=== PATIENT | female | born 1990 | race Caucasian/White ===

== ENCOUNTER 2017-05-23 21:14 | Emergency (ER) | payer OTHER ==
[2017-05-23 23:42] VITALS: BP 148/93
== END 2017-05-23 23:42 | disposition home or self-care (01) ==
LOC: ED 21:14
DX: M54.5 Low back pain (principal); I10 Essential (primary) hypertension; E11.9 Type 2 diabetes mellitus without complications
CPT/HCPCS: J3010; Q0162

== ENCOUNTER 2017-07-17 00:41 | Emergency (ER) | payer OTHER ==
[2017-07-17 02:50] LABS: ALBUMIN 3.4 g/dL (3.4-5.0); ALKALINE PHOSPHATASE 180 U/L (46-116); ALT/SGPT 52 U/L (14-59); AST/SGOT 24 U/L (15-37); BILIRUBIN TOTAL 0.4 mg/dL (0.20-1.00); CARBON DIOXIDE 28.7 mmol/L (21-32); CHLORIDE SERUM 97 mmol/L (98-107); CREATININE SERUM 0.6 mg/dL (0.6-1.0); GFR1 > 60 mL/min; GLUCOSE SERUM 331 mg/dL (74-106); LIPASE 200 IU/L (73-393); POTASSIUM SERUM 3.3 mmol/L (3.5-5.1); SODIUM SERUM 136 mmol/L (136-145)
[2017-07-17 02:51] LABS: BASOPHIL % 0.3 % (0-2); PLATELET COUNT 234 x10^3mcL (130-400); RED CELL DISTRIBUTION WIDTH 12.7 % (11.5-14.5)
[2017-07-17 03:02] LABS: CALCIUM 8.8 mg/dL (8.5-10.1)
[2017-07-17 04:06] LABS: microscopic required? NO
[2017-07-17 04:30] LABS: urine erythrocyte NEGATIVE (NEGATIVE)
[2017-07-17 06:39] VITALS: BP 151/100
== END 2017-07-17 06:39 | disposition home or self-care (01) ==
LOC: ED 00:41
PROVIDERS: Emergency Medicine
DX: R10.13 Epigastric pain (principal); R19.7 Diarrhea, unspecified; E11.65 Type 2 diabetes mellitus with hyperglycemia; I10 Essential (primary) hypertension; G89.29 Other chronic pain; M54.9 Dorsalgia, unspecified; Z79.84 Long term (current) use of oral hypoglycemic drugs
CPT/HCPCS: J2270; J2405; Q0092

== ENCOUNTER 2017-09-02 20:08 | Emergency (ER) | payer OTHER ==
[~2017-09-02] VITALS: Ht 167.6 cm; Wt 95.7 kg
[2017-09-02 20:16] VITALS: Ht 167.6 cm; Wt 95.7 kg
[2017-09-02 22:15] VITALS: BP 150/89
[2017-09-03] MEDS ORDERED: LISINOPRIL20 MG PO (22:50)
[2017-09-03] MEDS ORDERED: HYDROCHLOROTHIA25 MG PO (22:51)
[2017-09-03] MEDS ORDERED: GLUCOTROL10 MG PO (22:51)
[2017-09-03] MEDS ORDERED: METFORMIN HCL1000 MG PO (22:52)
[2017-09-03] MEDS ORDERED: TRAMADOL HCL50 MG PO (22:52)
== END 2017-09-02 22:15 | disposition home or self-care (01) ==
LOC: ED 20:08
DX: L02.214 Cutaneous abscess of groin (principal); L03.314 Cellulitis of groin; I10 Essential (primary) hypertension; E11.9 Type 2 diabetes mellitus without complications; Z90.49 Acquired absence of other specified parts of digestive tract
CPT/HCPCS: J0696

== ENCOUNTER 2017-09-03 21:05 | Inpatient (IN) | payer OTHER ==
[~2017-09-03] VITALS: Ht 167.6 cm; Wt 96.8 kg
[2017-09-03 21:20] VITALS: Ht 167.6 cm; Wt 96.8 kg
[2017-09-03 22:11] LABS: BASOPHIL % 0.2 % (0-2); PLATELET COUNT 236 x10^3mcL (130-400)
[2017-09-03 22:25] LABS: CALCIUM 8.5 mg/dL (8.5-10.1); CARBON DIOXIDE 28.2 mmol/L (21-32); CHLORIDE SERUM 98 mmol/L (98-107); CREATININE SERUM 0.8 mg/dL (0.6-1.0); GFR1 > 60 mL/min; GLUCOSE SERUM 416 mg/dL (74-106); POTASSIUM SERUM 3.6 mmol/L (3.5-5.1); SODIUM SERUM 134 mmol/L (136-145)
[2017-09-03 22:34] LABS: ALKALINE PHOSPHATASE 179 U/L (46-116); ALT/SGPT 38 U/L (14-59); AST/SGOT 17 U/L (15-37); BILIRUBIN TOTAL 0.4 mg/dL (0.20-1.00); C REACTIVE PROTEIN 11.6 mg/dL (<=0.9)
[2017-09-03 22:36] LABS: ALBUMIN 3.3 g/dL (3.4-5.0)
[2017-09-03 22:44] LABS: microscopic required? NO
[2017-09-03 22:49] LABS: CK-MB 0.7 ng/mL (0-3.6); T3 TOTAL 0.92 ng/mL
[2017-09-03 22:50] LABS: FREE T4 1.18 ng/dL (0.76-1.46); FREE THYROXINE INDEX 3.2 ug/dL (1.4-4.5)
[2017-09-03] MEDS ORDERED: LISINOPRIL20 MG PO (22:50)
[2017-09-03] MEDS ORDERED: HYDROCHLOROTHIA25 MG PO (22:51)
[2017-09-03] MEDS ORDERED: GLUCOTROL10 MG PO (22:51)
[2017-09-03] MEDS ORDERED: TRAMADOL HCL50 MG PO (22:52)
[2017-09-03] MEDS ORDERED: METFORMIN HCL1000 MG PO (22:52)
[2017-09-03 22:57] LABS: urine erythrocyte NEGATIVE (NEGATIVE)
[2017-09-03 23:13] LABS: CHOLESTEROL/HDL RATIO 3.9; MAGNESIUM 1.9 mg/dL (1.8-2.4); PHOSPHOROUS 2.9 mg/dL (2.5-4.9)
[2017-09-03 23:17] LABS: ERYTHROCYTE SED RATE 26 mm/hr (0-20)
[2017-09-03 23:57] LABS: AMPHETAMINE QUAL UR NONE DETECTED (NEG <=1000)
[2017-09-04 00:17] VITALS: BP 145/81
[2017-09-04 06:12] VITALS: BP 110/63
[2017-09-04 06:51] LABS: BASOPHIL % 0.2 % (0-2); PLATELET COUNT 213 x10^3mcL (130-400); RED CELL DISTRIBUTION WIDTH 13.2 % (11.5-14.5)
[2017-09-04 07:12] LABS: CALCIUM 7.8 mg/dL (8.5-10.1); CARBON DIOXIDE 25.2 mmol/L (21-32); CHLORIDE SERUM 105 mmol/L (98-107); CREATININE SERUM 0.5 mg/dL (0.6-1.0); GFR1 > 60 mL/min; GLUCOSE SERUM 238 mg/dL (74-106); POTASSIUM SERUM 3.4 mmol/L (3.5-5.1); SODIUM SERUM 139 mmol/L (136-145)
[2017-09-04 07:45] VITALS: BP 126/82
[2017-09-04 13:00] VITALS: BP 96/50
[2017-09-04 17:47] VITALS: BP 113/66
[2017-09-04 20:57] VITALS: BP 109/65
[2017-09-05 04:46] VITALS: BP 102/68
[2017-09-05 06:01] LABS: CALCIUM 8.8 mg/dL (8.5-10.1); CARBON DIOXIDE 26.7 mmol/L (21-32); CHLORIDE SERUM 105 mmol/L (98-107); CREATININE SERUM 0.6 mg/dL (0.6-1.0); GFR1 > 60 mL/min; GLUCOSE SERUM 205 mg/dL (74-106); MAGNESIUM 1.9 mg/dL (1.8-2.4); PHOSPHOROUS 3.8 mg/dL (2.5-4.9); POTASSIUM SERUM 3.9 mmol/L (3.5-5.1); SODIUM SERUM 139 mmol/L (136-145)
[2017-09-05 06:36] LABS: BASOPHIL % 0.2 % (0-2); PLATELET COUNT 239 x10^3mcL (130-400); RED CELL DISTRIBUTION WIDTH 13.6 % (11.5-14.5)
[2017-09-05] MEDS ORDERED: LEVAQUIN750 MG PO (11:07)
[2017-09-05] MEDS ORDERED: CLINDAMYCIN HC300 MG PO (11:08)
[2017-09-05] MEDS ORDERED: LAC PO (11:08)
[2017-09-05] MEDS ORDERED: CEPACOL SORE TH1 LO4 MM (11:09)
[2017-09-05 11:28] VITALS: BP 127/73
[2017-09-05] MEDS ORDERED: NORCO1 TA2 PO (11:49)
[2017-09-05] MEDS ORDERED: ASPIRIN81 MG PO (12:00)
[2017-09-05] MEDS ORDERED: LIPI20 PO (12:00)
[2017-09-05 15:52] VITALS: BP 128/80
[2017-09-05 18:20] VITALS: BP 119/83
[2017-09-05 18:42] VITALS: BP 119/83
== END 2017-09-05 19:22 | disposition home or self-care (01) | DRG 364 ==
LOC: ED 21:05 → EDBEDREQ 22:28 → DU 22:28
PROVIDERS: Family Medicine Sports Medicine; Specialist
PROC: 0Y950ZZ Drainage of Right Inguinal Region, Open Approach (ICD-10-PCS; principal; 2017-09-03)
DX: L02.214 Cutaneous abscess of groin (principal); N17.0 Acute kidney failure with tubular necrosis; B95.61 Methicillin susceptible Staphylococcus aureus infection as the cause of diseases classified elsewhere; E44.0 Moderate protein-calorie malnutrition; E11.65 Type 2 diabetes mellitus with hyperglycemia; E87.1 Hypo-osmolality and hyponatremia; I16.0 Hypertensive urgency; I10 Essential (primary) hypertension; E78.1 Pure hyperglyceridemia; E66.9 Obesity, unspecified; Z68.34 Body mass index [BMI] 34.0-34.9, adult; Z91.14 Patient's other noncompliance with medication regimen
CPT/HCPCS: 82962; 83880; 84439; J0696; J1815; J1885; J2001; J2250; J2405; J3010; J3490; J7030; Q0092

== ENCOUNTER 2017-09-07 14:40 | Emergency (ER) | payer OTHER ==
[~2017-09-07] VITALS: Ht 167.6 cm; Wt 94.8 kg
[~2017-09-07 14:40] MED LIST: ASPIRIN81 MG PO; CEPACOL SORE TH1 LO4 MM; CLINDAMYCIN HC300 MG PO; GLUCOTROL10 MG PO; HYDROCHLOROTHIA25 MG PO; LAC PO; LEVAQUIN750 MG PO; LIPI20 PO; LISINOPRIL20 MG PO; METFORMIN HCL1000 MG PO; NORCO1 TA2 PO; TRAMADOL HCL50 MG PO
[2017-09-07 14:49] VITALS: Ht 167.6 cm; Wt 94.8 kg
[2017-09-07 20:03] VITALS: BP 102/59
== END 2017-09-07 20:06 | disposition home or self-care (01) ==
LOC: ED 14:40
DX: Z48.01 Encounter for change or removal of surgical wound dressing (principal); R21 Rash and other nonspecific skin eruption; E11.9 Type 2 diabetes mellitus without complications; I10 Essential (primary) hypertension

== ENCOUNTER 2017-12-05 22:48 | Inpatient (IN) | payer OTHER ==
[~2017-12-05] VITALS: Ht 167.6 cm; Wt 95.0 kg
[2017-12-05 23:04] VITALS: Ht 167.6 cm; Wt 95.0 kg
[2017-12-06 01:43] LABS: PLATELET COUNT 214 x10^3mcL (130-400); RED CELL DISTRIBUTION WIDTH 12.6 % (11.5-14.5)
[2017-12-06 02:04] LABS: ALKALINE PHOSPHATASE 152 U/L (46-116); ALT/SGPT 46 U/L (14-59); AST/SGOT 21 U/L (15-37); BILIRUBIN TOTAL 0.7 mg/dL (0.20-1.00); CALCIUM 8.4 mg/dL (8.5-10.1); CHLORIDE SERUM 98 mmol/L (98-107); CREATININE SERUM 0.8 mg/dL (0.6-1.0); GFR1 > 60 mL/min; GLUCOSE SERUM 318 mg/dL (74-106); SODIUM SERUM 137 mmol/L (136-145); TOTAL PROTEIN, SERUM 7.3 g/dL (6.4-8.2)
[2017-12-06 02:05] LABS: ALBUMIN 3.3 g/dL (3.4-5.0)
[2017-12-06 02:10] LABS: OSMOLALITY SERUM 298 mOsm/kg (278-298)
[2017-12-06 02:27] LABS: microscopic required? YES; urine erythrocyte TRACE (NEGATIVE)
[2017-12-06 02:55] LABS: BAND NEUTROPHIL 12 % (0-10); BASOPHIL 0 % (0-2); METAMYELOCTE 2 % (0-2); MONOCYTE 8 % (0-7); SEGMENTED NEUTROPHILS 58 % (37-75)
[2017-12-06 02:56] LABS: rbc morphology (normal/abnorm) NORMAL (NORMAL)
[2017-12-06] MEDS ORDERED: LISINOPRIL40 MG PO (03:57)
[2017-12-06 05:59] VITALS: BP 126/84
[2017-12-06 06:06] LABS: MAGNESIUM 1.7 mg/dL (1.8-2.4); PHOSPHOROUS 2.1 mg/dL (2.5-4.9)
[2017-12-06 06:14] LABS: FREE T4 1.08 ng/dL (0.76-1.46); FREE THYROXINE INDEX 2.5 ug/dL (1.4-4.5); T4(THYROXINE) 7.7 ug/dL (4.7-13.3)
[2017-12-06 06:15] LABS: CHOLESTEROL/HDL RATIO 4.5
[2017-12-06 08:19] LABS: AMPHETAMINE QUAL UR NONE DETECTED (NEG <=1000)
[2017-12-06 08:22] VITALS: BP 121/87
[2017-12-06 08:27] LABS: T3 TOTAL 1.08 ng/mL
[2017-12-06 12:37] VITALS: BP 136/85
[2017-12-06 14:37] LABS: CALCIUM 8.7 mg/dL (8.5-10.1); CARBON DIOXIDE 24.3 mmol/L (21-32); CHLORIDE SERUM 101 mmol/L (98-107); CREATININE SERUM 0.6 mg/dL (0.6-1.0); GFR1 > 60 mL/min; GLUCOSE SERUM 248 mg/dL (74-106); POTASSIUM SERUM 4.2 mmol/L (3.5-5.1); SODIUM SERUM 136 mmol/L (136-145)
[2017-12-06 17:44] VITALS: BP 134/77
[2017-12-06 21:10] VITALS: BP 129/79
[2017-12-07 04:57] VITALS: BP 134/77
[2017-12-07 06:10] VITALS: BP 134/77
[2017-12-07 07:14] LABS: BASOPHIL % 0.1 % (0-2); PLATELET COUNT 190 x10^3mcL (130-400)
[2017-12-07 07:15] LABS: CALCIUM 8.1 mg/dL (8.5-10.1); CARBON DIOXIDE 26.3 mmol/L (21-32); CHLORIDE SERUM 102 mmol/L (98-107); CREATININE SERUM 0.6 mg/dL (0.6-1.0); GFR1 > 60 mL/min; GLUCOSE SERUM 213 mg/dL (74-106); MAGNESIUM 1.6 mg/dL (1.8-2.4); PHOSPHOROUS 2.4 mg/dL (2.5-4.9); POTASSIUM SERUM 3.1 mmol/L (3.5-5.1); SODIUM SERUM 135 mmol/L (136-145)
[2017-12-07 09:20] VITALS: BP 125/80
[2017-12-07 13:52] VITALS: BP 132/80
[2017-12-07] MEDS ORDERED: METFORMIN HCL850 MG PO (16:20)
[2017-12-07] MEDS ORDERED: GLIPIZIDE ER5 M1 PO (16:21)
[2017-12-07] MEDS ORDERED: KEF500 PO (16:23)
[2017-12-07] MEDS ORDERED: ZITHROMAX Z-PA250 MG PO (16:23)
[2017-12-07] MEDS ORDERED: LAC PO (16:24)
[2017-12-07 17:09] VITALS: BP 132/80
[2017-12-07 17:26] VITALS: BP 128/83
[2017-12-07] MEDS ORDERED: TESSALON PERLE100 MG PO (17:51)
== END 2017-12-07 19:15 | disposition home or self-care (01) | DRG 139 ==
LOC: ED 22:48 → DU 12-06 04:20
PROVIDERS: Emergency Medicine; Family Medicine; Family Medicine Sports Medicine
DX: J18.9 Pneumonia, unspecified organism (principal); N17.0 Acute kidney failure with tubular necrosis; I10 Essential (primary) hypertension; E87.2 Acidosis; E11.65 Type 2 diabetes mellitus with hyperglycemia; G89.29 Other chronic pain; M54.9 Dorsalgia, unspecified; E83.42 Hypomagnesemia; E83.39 Other disorders of phosphorus metabolism; E44.1 Mild protein-calorie malnutrition; E87.6 Hypokalemia; E11.51 Type 2 diabetes mellitus with diabetic peripheral angiopathy without gangrene; E78.5 Hyperlipidemia, unspecified; E66.9 Obesity, unspecified; Y95 Nosocomial condition; Z90.49 Acquired absence of other specified parts of digestive tract; Z79.899 Other long term (current) drug therapy; Z79.82 Long term (current) use of aspirin; Z83.3 Family history of diabetes mellitus; Z68.33 Body mass index [BMI] 33.0-33.9, adult
CPT/HCPCS: 36600; 82962; 84439; 87804; 94150; J0696; J1956; J7030; Q0092; Q0162

== ENCOUNTER 2017-12-11 19:31 | Emergency (ER) | payer OTHER ==
[~2017-12-11] VITALS: Ht 162.6 cm; Wt 81.2 kg
[~2017-12-11 19:31] MED LIST changes: +GLIPIZIDE ER5 M1 PO; +KEF500 PO; +LISINOPRIL40 MG PO; +METFORMIN HCL850 MG PO; +TESSALON PERLE100 MG PO; +ZITHROMAX Z-PA250 MG PO
[2017-12-11 19:48] VITALS: Ht 162.6 cm; Wt 81.2 kg
[2017-12-11 21:08] VITALS: BP 128/84
== END 2017-12-11 21:08 | disposition home or self-care (01) ==
LOC: ED 19:31
DX: T78.40XA Allergy, unspecified, initial encounter (principal); R21 Rash and other nonspecific skin eruption; X58.XXXA Exposure to other specified factors, initial encounter
CPT/HCPCS: Q0163

== ENCOUNTER 2018-04-21 12:57 | Emergency (ER) | payer OTHER ==
[~2018-04-21] VITALS: Ht 167.6 cm; Wt 94.3 kg
[2018-04-21 13:01] VITALS: Ht 167.6 cm; Wt 94.3 kg
[2018-04-21 14:51] VITALS: BP 144/91
== END 2018-04-21 14:51 | disposition home or self-care (01) ==
LOC: ED 12:57
DX: G89.29 Other chronic pain (principal); M54.5 Low back pain; I10 Essential (primary) hypertension; E66.01 Morbid (severe) obesity due to excess calories; E11.9 Type 2 diabetes mellitus without complications; Z90.89 Acquired absence of other organs
CPT/HCPCS: J1100; J1885

== ENCOUNTER 2018-04-29 15:13 | Emergency (ER) | payer OTHER ==
[~2018-04-29] VITALS: Ht 167.6 cm; Wt 94.3 kg
[2018-04-29 15:22] VITALS: Ht 167.6 cm; Wt 94.3 kg
[2018-04-29 17:05] VITALS: BP 134/79
== END 2018-04-29 17:05 | disposition home or self-care (01) ==
LOC: ED 15:13
DX: M54.9 Dorsalgia, unspecified (principal); I10 Essential (primary) hypertension; E11.9 Type 2 diabetes mellitus without complications; Z90.89 Acquired absence of other organs; X50.0XXA Overexertion from strenuous movement or load, initial encounter; Y93.89 Activity, other specified; Y92.89 Other specified places as the place of occurrence of the external cause; Y99.8 Other external cause status
CPT/HCPCS: J1100; J1885

== ENCOUNTER 2018-12-12 23:58 | Emergency (ER) | payer OTHER ==
[2018-12-13 02:25] LABS: BASOPHIL % 0.3 % (0-2); CARBON DIOXIDE 28.2 mmol/L (21-32); CHLORIDE SERUM 100 mmol/L (98-107); CREATININE SERUM 0.7 mg/dL (0.6-1.0); GFR1 > 60 mL/min; GLUCOSE SERUM 294 mg/dL (74-106); PLATELET COUNT 215 x10^3mcL (130-400); POTASSIUM SERUM 3.5 mmol/L (3.5-5.1); RED CELL DISTRIBUTION WIDTH 12.7 % (11.5-14.5); SODIUM SERUM 137 mmol/L (136-145)
[2018-12-13 02:28] LABS: UA SPECIFIC GRAVITY 1.015 (1.005-1.035); microscopic required? YES; urine erythrocyte 3+ (NEGATIVE)
[2018-12-13 02:29] LABS: ALBUMIN 3.5 g/dL (3.4-5.0); ALKALINE PHOSPHATASE 116 U/L (46-116); ALT/SGPT 44 U/L (14-59); AST/SGOT 20 U/L (15-37); BILIRUBIN TOTAL 0.43 mg/dL (0.20-1.00); LIPASE 160 IU/L (73-393); TOTAL PROTEIN, SERUM 7.7 g/dL (6.4-8.2)
[2018-12-13 06:09] VITALS: BP 156/90
== END 2018-12-13 06:09 | disposition home or self-care (01) ==
LOC: ED 23:58
PROVIDERS: Emergency Medicine
DX: R10.11 Right upper quadrant pain (principal); R10.13 Epigastric pain; R10.30 Lower abdominal pain, unspecified; R30.9 Painful micturition, unspecified; I10 Essential (primary) hypertension; E11.9 Type 2 diabetes mellitus without complications; G89.29 Other chronic pain; Z90.89 Acquired absence of other organs
CPT/HCPCS: J0696; J1885; J2405; J7030; Q0092

== ENCOUNTER 2019-03-26 21:54 | Emergency (ER) | payer OTHER ==
[~2019-03-26] VITALS: Ht 167.6 cm; Wt 92.5 kg
[2019-03-27 00:44] VITALS: BP 140/98
== END 2019-03-27 00:44 | disposition home or self-care (01) ==
LOC: ED 21:54
DX: S02.5XXA Fracture of tooth (traumatic), initial encounter for closed fracture (principal); K05.20 Aggressive periodontitis, unspecified; I10 Essential (primary) hypertension; E11.9 Type 2 diabetes mellitus without complications; G89.29 Other chronic pain; M54.9 Dorsalgia, unspecified; Z90.89 Acquired absence of other organs; X58.XXXA Exposure to other specified factors, initial encounter; Y93.89 Activity, other specified; Y92.89 Other specified places as the place of occurrence of the external cause; Y99.8 Other external cause status
CPT/HCPCS: J0696; J1885; Q0162

== ENCOUNTER 2019-03-30 15:40 | Emergency (ER) | payer OTHER ==
[~2019-03-30] VITALS: Ht 167.6 cm; Wt 93.9 kg
[2019-03-30 15:42] VITALS: Ht 167.6 cm; Wt 93.9 kg
[2019-03-30 17:50] VITALS: BP 144/71
== END 2019-03-30 17:50 | disposition home or self-care (01) ==
LOC: ED 15:40
DX: K01.1 Impacted teeth (principal); K04.7 Periapical abscess without sinus; I10 Essential (primary) hypertension; E11.9 Type 2 diabetes mellitus without complications; G89.29 Other chronic pain; Z90.89 Acquired absence of other organs
CPT/HCPCS: J0696; J1885

== ENCOUNTER 2019-05-28 14:00 | Emergency (ER) | payer OTHER ==
[~2019-05-28] VITALS: Ht 167.6 cm; Wt 91.2 kg
[2019-05-28 14:05] VITALS: Ht 167.6 cm; Wt 91.2 kg
[2019-05-28 16:06] VITALS: BP 143/96
== END 2019-05-28 16:06 | disposition home or self-care (01) ==
LOC: ED 14:00
DX: K08.89 Other specified disorders of teeth and supporting structures (principal); I10 Essential (primary) hypertension; E11.9 Type 2 diabetes mellitus without complications; G89.29 Other chronic pain; Z90.89 Acquired absence of other organs
CPT/HCPCS: J0696; J1885

== ENCOUNTER 2019-09-19 14:22 | Emergency (ER) | payer OTHER ==
[~2019-09-19] VITALS: Ht 167.6 cm; Wt 90.3 kg
[2019-09-19 14:28] VITALS: Ht 167.6 cm; Wt 90.3 kg
[2019-09-19 16:13] VITALS: BP 166/98
== END 2019-09-19 16:13 | disposition home or self-care (01) ==
LOC: ED 14:22
DX: J11.1 Influenza due to unidentified influenza virus with other respiratory manifestations (principal); I10 Essential (primary) hypertension; E11.9 Type 2 diabetes mellitus without complications; G89.29 Other chronic pain; M54.9 Dorsalgia, unspecified; Z90.89 Acquired absence of other organs; Z98.890 Other specified postprocedural states
CPT/HCPCS: 87804

== ENCOUNTER 2019-09-24 11:36 | Emergency (ER) | payer OTHER ==
[~2019-09-24] VITALS: Ht 167.6 cm; Wt 89.8 kg
[2019-09-24 11:41] VITALS: Ht 167.6 cm; Wt 89.8 kg
[2019-09-24 14:09] VITALS: BP 152/102
== END 2019-09-24 14:09 | disposition home or self-care (01) ==
LOC: ED 11:36
DX: L02.214 Cutaneous abscess of groin (principal); I10 Essential (primary) hypertension; E11.9 Type 2 diabetes mellitus without complications; G89.29 Other chronic pain; M54.9 Dorsalgia, unspecified; Z90.89 Acquired absence of other organs; Z98.890 Other specified postprocedural states
CPT/HCPCS: J2001

== ENCOUNTER 2019-09-25 13:32 | Emergency (ER) | payer OTHER ==
[~2019-09-25] VITALS: Ht 167.6 cm; Wt 89.8 kg
[2019-09-25 13:49] VITALS: Ht 167.6 cm; Wt 89.8 kg
[2019-09-25 17:08] VITALS: BP 143/82
== END 2019-09-25 17:08 | disposition home or self-care (01) ==
LOC: ED 13:32
DX: L02.214 Cutaneous abscess of groin (principal); R21 Rash and other nonspecific skin eruption; I10 Essential (primary) hypertension; E11.9 Type 2 diabetes mellitus without complications; Z90.89 Acquired absence of other organs

== ENCOUNTER 2020-08-09 16:01 | Emergency (ER) | payer OTHER ==
[~2020-08-09] VITALS: Ht 167.6 cm; Wt 96.6 kg
[2020-08-09 16:15] VITALS: Ht 167.6 cm; Wt 96.6 kg
[2020-08-09 16:55] LABS: BASOPHIL % 0.5 % (0-2); PLATELET COUNT 292 x10^3mcL (130-400); RED CELL DISTRIBUTION WIDTH 13.8 % (11.5-14.5)
[2020-08-09 17:14] LABS: CARBON DIOXIDE 29.4 mmol/L (21-32); CHLORIDE SERUM 100 mmol/L (98-107); CREATININE SERUM 0.7 mg/dL (0.6-1.0); GFR1 > 60 mL/min; GLUCOSE SERUM 229 mg/dL (74-106); POTASSIUM SERUM 3.9 mmol/L (3.5-5.1); SODIUM SERUM 137 mmol/L (136-145)
[2020-08-09 17:18] LABS: ALBUMIN 3.5 g/dL (3.4-5.0); ALKALINE PHOSPHATASE 115 U/L (46-116); ALT/SGPT 49 U/L (14-59); AST/SGOT 19 U/L (15-37); BILIRUBIN TOTAL 0.35 mg/dL (0.20-1.00); LIPASE 230 IU/L (73-393); TOTAL PROTEIN, SERUM 7.8 g/dL (6.4-8.2)
[2020-08-09 18:01] VITALS: BP 123/84
== END 2020-08-09 19:07 | disposition home or self-care (01) ==
LOC: ED 16:01
DX: R42 Dizziness and giddiness (principal); R11.0 Nausea; I10 Essential (primary) hypertension; E11.9 Type 2 diabetes mellitus without complications; G89.29 Other chronic pain; M54.9 Dorsalgia, unspecified; Z98.890 Other specified postprocedural states; Z90.89 Acquired absence of other organs
CPT/HCPCS: 82962